=== PATIENT | male | born 1990 | race Caucasian/White ===

== ENCOUNTER 2016-10-11 20:13 | Emergency (ER) | payer OTHER ==
--- NOTE | 2016-10-11 21:33 | ED NURSING NOTES ---
Clinical Report - Nurses [facility] [address] [place] [address] 10/11/2016 20:14 Patient: ANDRIA JI TRIAGE Triage time 2019. Acuity: LEVEL 4. Chief Complaint: SORE THROAT. 20:20. --20:52 Shanita Burks R.N. 20:25 10/11/16. BP: 156/98. HR: 105. RR: 18. O2 saturation: 98%. Temp: 98.2 F. Pain level now: 11/23. --20:52 Shanita Burks R.N. Weight: 104.3 kg stated. Height/Length: 71 inches Per Patient. BMI: 32.1. --20:46 Shanita Burks R.N. Medications Amoxicillin Oral (Capsule 500 mg) 2 capsules, BID (taken 2 days). --20:48 Shanita Burks R.N. tylenol 650mg this am . --20:49 Shanita Burks R.N. Musonex 1 po OTC today. --20:49 Shanita Burks R.N. ZyrTEC Allergy Oral (Tablet 10 mg) 1 tablet, dalily. --20:50 Shanita Burks R.N. Allergies No Known Drug Allergy. --20:48 Shanita Burks R.N. History Arrived by private vehicle. Historian: patient. Accompanied by mother. No primary care physician. Onset. (6 days ago - was seen at clinic yesterday, started on antibiotics, not getting better- difficulty drinking fluids). He has had hoarseness. Reports enlarged lymph nodes. SOCIAL HX: Never smoker. Occasional alcohol use. --20:52 Shanita Burks R.N. PROBLEMS: Pharyngitis. Viral Disease. Radius Fracture. Asthma. --20:47 Shanita Burks R.N. ADDITIONAL SURGERIES: Laparoscopy. --20:47 Shanita Burks R.N. Interventions ID band on patient. To treatment room. --20:52 Shanita Burks R.N. PHYSICAL ASSESSMENT 20:20. Ambulatory to room. GENERAL / NEURO / PSYCH: Alert. Oriented X 4. Appears in pain. HEENT: Hoarse voice. Mouth within normal limits upon inspection. No dental injury noted. Mucous membranes are pink. RESPIRATORY: Respirations not labored. CVS: Capillary refill less than 2 seconds. SKIN: Skin is warm and dry. --20:53 Shanita Burks R.N. NURSING PROGRESS NOTES 20:20. Head of bed elevated. Patient identifiers checked. Call light placed in reach. Side rails up. Bed placed in lowest position. Patient ready for evaluation- chart flagged. --20:52 Shanita Burks R.N. 20:30. Patient ID band checked for patient name and birthdate: patient confirmed. Throat swab obtained for rapid strep; labeled in the presence of the patient and sent to lab (by NANDO). --20:53 Shanita Burks R.N. 20:40 10/11/2016 dexameethasone * PO 8mg --20:54 Shanita Burks R.N. 20:40 10/11/2016 TYLENOL W CODEINE (Acetaminophen-Codeine) PO Oral Suspension 10 mL given. Allergies verified and confirmed 5 rights. --20:55 Shanita Burks R.N. 20:55 10/11/16. Patient ID band checked for patient name and birthdate: patient confirmed. Blood samples drawn by lab per protocol ; labeled in presence of the patient and sent to lab: rainbow set. --20:55 Shanita Burks R.N. DISPOSITION / DISCHARGE 21:35. Condition at departure: unchanged and stable. No learning barriers present. Discharge instructions provided and reviewed with the patient and parent. Reviewed medication(s) (stop amoxicillin, may take codine, motrin and tylenol for pain). Patient and parent verbalized understanding. Written instructions provided in Bulgarian. The patient was discharged home and accompanied by parent. He left the Emergency Department ambulatory and via private vehicle. Parent driving. --21:45 Shanita Burks R.N. 21:35 10/11/16. BP: deferred. HR: deferred. RR: deferred. O2 saturation: deferred. Temp: deferred. --21:45 Shanita Burks R.N. Locked/Released at 10/11/2016 21:46 by Shanita Burks R.N.
--- NOTE | 2016-10-11 21:33 | ED ORDER SUMMARY ---
..... Patient: ANDRIA JI OrderSheet [facility] VisitID: [id number] [address] [place] [address] 26y, M Registration Date/Time: 10/11/2016 ORDER SHEET Weight: 104.3 kg (stated) Allergies: No Known Drug Allergy GENERAL ORDERS: Culture, Strep Screen Urgent (20:36 10/11/2016 EKoroleva P.A.-C) (Ack 20:53 CHagerty ER Restaurant General Manager) (20:54 DDean R.N.) Monoscreen Urgent (20:51 10/11/2016 EKoroleva P.A.-C) (Ack 20:53 CHagerty ER Restaurant General Manager) (20:55 DDean R.N.) MEDICATION ORDERS: Dexamethasone PO 8mg (NOW) (20:36 10/11/2016 EKoroleva P.A.-C) (Ack 20:38 DDean R.N.) (20:54 DDean R.N.) Tylenol w Codeine PO 10 mL (HIGH ALERT MEDICATION, NOW) (20:36 10/11/2016 EKoroleva P.A.-C) (Ack 20:39 DDean R.N.) (20:55 DDean R.N.) IV FLUIDS: ORDER SHEET NOTES: [Electronically signed by Shanita Burks R.N. (21:46 10/11/2016)] [Electronically signed by Miriam MoultonAFaith-Lilliana (22:11 10/11/2016)] [Electronically locked/signed by Shanita Burks R.N. (21:46 10/11/2016)]
--- NOTE | 2016-10-11 21:33 | ED ORDER SUMMARY ---
..... Patient: ANDRIA JI OrderSheet [facility] VisitID: [id number] [address] [place] [address] 26y, M Registration Date/Time: 10/11/2016 ORDER SHEET Weight: 104.3 kg (stated) Allergies: No Known Drug Allergy GENERAL ORDERS: Culture, Strep Screen Urgent (20:36 10/11/2016 EKoroleva P.A.-C) (Ack 20:53 CHagerty ER Motor Vehicles Supervisor) (20:54 DDean R.N.) Monoscreen Urgent (20:51 10/11/2016 EKoroleva P.A.-C) (Ack 20:53 CHagerty ER Motor Vehicles Supervisor) (20:55 DDean R.N.) MEDICATION ORDERS: Dexamethasone PO 8mg (NOW) (20:36 10/11/2016 EKoroleva P.A.-C) (Ack 20:38 DDean R.N.) (20:54 DDean R.N.) Tylenol w Codeine PO 10 mL (HIGH ALERT MEDICATION, NOW) (20:36 10/11/2016 EKoroleva P.A.-C) (Ack 20:39 DDean R.N.) (20:55 DDean R.N.) IV FLUIDS: ORDER SHEET NOTES: [Electronically signed by Shanita Burks R.N. (21:46 10/11/2016)] [Electronically signed by Miriam MoultonAFaith-Lilliana (22:11 10/11/2016)] [Electronically locked/signed by Shanita Burks R.N. (21:46 10/11/2016)]
--- NOTE | 2016-10-11 21:33 | ED CLINICAL REPORT ---
Clinical Report - Physicians/Mid Levels [facility] [address] [place] [address] 10/11/2016 20:14 Patient: ANDRIA JI Time Seen: 20:Oct 11 2016. Arrived- By private vehicle. Historian- patient. HISTORY OF PRESENT ILLNESS Chief Complaint: SORE THROAT. Is still present. Pain described as mild. The patient has had a sore throat. No toothache or swollen face. (Pt reports sore throat over last 3-4 days, some low grade fevers). Recent medical care: The patient was seen recently by a health care provider (clinic, started on amox ( neg strep)). REVIEW OF SYSTEMS The patient has had fever. No cough, difficulty breathing, diarrhea, abdominal pain or headache. No skin rash. All systems otherwise negative, except as recorded above. SOCIAL HISTORY Never smoker. No alcohol use or drug use. ADDITIONAL NOTES The nursing notes have been reviewed. PHYSICAL EXAM Vital Signs: 10/11/2016 20:25 BP: 156/98. HR: 105. RR: 18. O2 saturation: 98%. Temp: 98.2 F. Pain level now: 3/10. Appearance: Alert. Head: Normal external inspection. ENT: Nose normal. Left-sided tonsillar exudate and swelling. Membrane present suggesting mononucleosis. Pharynx normal. No trismus present. No dental tenderness, nasal discharge or purulent nasal discharge. Neck: Lymphadenopathy present. Trachea midline. CVS: Normal heart rate and rhythm. Heart sounds normal. Respiratory: No respiratory distress. Breath sounds normal. Abdomen: Soft. No abdominal tenderness or rebound tenderness. Skin: Normal skin color. LABS, X-RAYS, AND EKG Laboratory Tests: Monoscreen: (RASHEED: 10/11/2016 20:57) ( MsgRcvd 10/11/2016 21:17) Final results Test Result Flag Units (Reference) MONOSCREEN POSITIVE (NEGATIVE) Culture, Strep Screen: (RASHEED: 10/11/2016 20:30) ( MsgRcvd 10/11/2016 20:50) Final results Test Result Flag Units (Reference) RAPID STREP SCREEN - THROAT DATE: 10/11/16 NEGATIVE SCREEN: RAPID STREP SCREEN NEGATIVE; CONFIRMATION TO FOLLOW . PROGRESS AND PROCEDURES Course of Care: Pt here in er with no signs of uvula shift, pt stable. NO distress. No signs of cough, lungs clear. Pt with mono given steroid dexamethasone for sx, discussed course of care and treatment for patient. Neg rapid strep in er. 10/11/2016 20:25 BP: 156/98. HR: 105. RR: 18. O2 saturation: 98%. Temp: 98.2 F. Pain level now: 11/23. Patient is stable. Patient/family counseled. Disposition: Discharged. CLINICAL IMPRESSION Infectious mononucleosis (from Karan Ward virus) with pharyngitis. INSTRUCTIONS Drink plenty of fluids. Prescription Medications: Tylenol with Codeine Liquid, 12 mg / 120 mg / 5 mL: take 1-2 teaspoons every 6 hours as needed for pain. No refill. Substitution is permissible. (240mL) Motrin 800 mg tablets: take 1 tablet orally every 8 hours for 5 days, as needed for pain or fever. Dispense fifteen (15). No refill. Substitution is permissible. OTC Medications: Tylenol Children's Liquid, 160 mg/5 mL (available over the counter): take fifteen (15) mL orally every 6 hours as needed for pain or fever. Dispense one hundred twenty (120) mL. No refill. Substitution is permissible. Follow-up: Follow up with your doctor in three days. (Electronically signed by Miriam Moulton P.A.-C 10/11/2016 22:11)
--- NOTE | 2016-10-11 22:11 | ED MAR SUMMARY ---
..... Medication Administration Record [facility] [address] [place] [address] Patient: ANDRIA JI Visit ID: [id number] 26y, M Weight: 104.3 kg Height/Length: 71 in BMI: 32.1 ALLERGIES: No Known Drug Allergy Given 20:40 10/11/2016 Shanita Burks RKeshawn. Medication Administered: dexameethasone *, Dose: 8mg * PO. Medication Ordered: Dexamethasone PO 8mg (NOW). Given 20:40 10/11/2016 Shanita Burks, R.N. Medication Administered: TYLENOL W CODEINE [PO] (ACETAMINOPHEN-CODEINE), Dose: 10 mL Oral Suspension PO. Medication Ordered: Tylenol w Codeine PO 10 mL (HIGH ALERT MEDICATION, NOW).
--- NOTE | 2016-10-11 22:11 | ED MED RECONCILIATION SUMMARY ---
Patient: ANDRIA JI Medication Reconciliation Report [facility] VisitID: [id number] [address] [place] [address] 26y, M Registration Date/Time: 10/11/2016 Weight: 104.3 kg Height/Length: 71 in. BMI: 32.1 ALLERGIES: No Known Drug Allergy The patient's Home Medications are listed below: THE FOLLOWING MEDICATIONS NEED TO BE RECONCILED: Amoxicillin Oral (500 mg) 2 capsules, BID, taken 2 days Musonex 1 po OTC today tylenol 650mg this am ZyrTEC Allergy Oral (10 mg) 1 tablet, dalily The source(s) of the original Home Medication information: Not obtained. The following Medications were given to the patient in the Emergency Department: dexameethasone PO 8mg, administered: 10/11/2016 8:40:00 PM TYLENOL W CODEINE [PO] PO 10 mL, administered: 10/11/2016 8:40:00 PM The following Medications were prescribed to the patient: Tylenol with Codeine Liquid, 12 mg / 120 mg / 5 mL: take 1-2 teaspoons every 6 hours as needed for pain. No refill. Substitution is permissible.(240mL) -- Miriam Moulton PYang Tylenol Children's Liquid, 160 mg/5 mL (available over the counter): take fifteen (15) mL orally every 6 hours as needed for pain or fever. Dispense one hundred twenty (120) mL. No refill. Substitution is permissible. -- Miriam Moulton P.AMarco Motrin 800 mg tablets: take 1 tablet orally every 8 hours for 5 days, as needed for pain or fever. Dispense fifteen (15). No refill. Substitution is permissible. -- Miriam Moulton P.A.-C
--- NOTE | 2016-10-11 22:11 | ED DISCHARGE INSTRUCTIONS ---
Patient: ANDRIA JI General Instructions [facility] VisitID: [id number] [place] [address] 26y, M Registration Date/Time: 10/11/2016 Infectious mononucleosis (from Karan Ward virus) with pharyngitis. INSTRUCTIONS Drink plenty of fluids. Prescription Medications: Tylenol with Codeine Liquid, 12 mg / 120 mg / 5 mL: take 1-2 teaspoons every 6 hours as needed for pain. No refill. Substitution is permissible. (240mL) Motrin 800 mg tablets: take 1 tablet orally every 8 hours for 5 days, as needed for pain or fever. Dispense fifteen (15). No refill. Substitution is permissible. OTC Medications: Tylenol Children's Liquid, 160 mg/5 mL (available over the counter): take fifteen (15) mL orally every 6 hours as needed for pain or fever. Dispense one hundred twenty (120) mL. No refill. Substitution is permissible. Follow-up: Follow up with your doctor in three days. ADDITIONAL INFORMATION Mononucleosis Mononucleosis ("Tama") is a contagious viral infection. Most infants and children exposed to the virus get only mild flu-like symptoms or no symptoms at all. However, when infection occurs in teens and young adults, it causes Mononucleosis. Once infected, you are immune and cannot "catch" Tama again; however, the virus stays in your body and can become active again without causing symptoms. While the virus is active it can spread to others. The virus is spread by contact with saliva, most often by kissing someone who has the virus, even though they may not have symptoms. It takes about 4-6 weeks to develop symptoms after exposure. Early symptoms include headache, nausea, tiredness and general muscle aching. This is followed by sore throat, fever and swollen lymph glands in the neck and sometimes under the arms and in the groin. Symptoms usually go away in about 1-2 months, but can last up to four months. If your symptoms have been present less than one week or more than three weeks, the Tama-Spot test used to diagnose this disease may be negative even though you have the illness. IN this case, other tests may help the doctor make the diagnosis. If Ampicillin was previously prescribed for your sore throat, it may have caused a rash. This is not serious and will fade in about one week. This is not a true allergic reaction to Ampicillin, but a drug reaction with the virus. Tama can cause your spleen to swell. The spleen is a fist-sized organ in the upper left abdomen that stores red blood cells. Injury to a swollen spleen can cause the spleen to rupture. This can cause life-threatening internal bleeding. To avoid this, follow the advice below. Home Care: 1) Rest in bed until the fever and weakness have gone away. 2) Drink plenty of fluids, but avoid alcohol. Otherwise, you may eat a regular diet. 3) You may use acetaminophen (Tylenol) or ibuprofen (Motrin, Advil) to control fever and pain, unless another medicine was prescribed. [ NOTE : If you have chronic liver or kidney disease or ever had a stomach ulcer or GI bleeding, talk with your doctor before using these medicines.] (Aspirin should never be used in anyone under 18 years of age who is ill with a fever. It may cause severe liver damage.) 4) Pfgg-bdu-uypzfjk lozenges or spray may be used for sore throat. Gargling with warm salt water (1/2 teaspoon in 1 glass of warm water) is also soothing to the throat. 5) You may return to work or school after the fever goes away and you are feeling better. 6) Do not play contact sports or perform strenuous activity for eight weeks, or until cleared by your doctor. A sharp blow to your left side could rupture a swollen spleen. 7) If you have an itchy rash, you may take Benadryl (an priz-dai-tbuhtmt antihistamine). Use lower doses during the daytime and higher doses at bedtime since the drug may make you sleepy. [NOTE: Do not use Benadryl if you have glaucoma or if you are a man with trouble urinating due to an enlarged prostate.] Claritin (loratidine) is an antihistamine that causes less drowsiness and is a good alternative for daytime use. Preventing Spread Of The Virus: To limit the spread of the virus, avoid exposing others to your saliva for at least six months after your illness (no kissing, don't share utensils, glasses or toothbrushes). Follow Up with your doctor within one to two weeks or as advised by our staff to be sure that there are no complications. If symptoms of extreme fatigue and swollen glands last longer than 6 months, see your doctor for further testing. Get Prompt Medical Attention if any of the following occur: -- Difficulty breathing, excess coughing or chest pains -- Yellow skin or eyes -- Severe or worsening abdominal pain -- Fainting or dizziness -- Severe stiff neck, headache or facial weakness Acetaminophen Oral solution What is this medicine? ACETAMINOPHEN (a set a RACHANA belen fen) is a pain reliever. It is used to treat mild pain and fever. How should I use this medicine? Take this medicine by mouth. This medicine comes in more than one concentration. Check the concentration on the label before every dose to make sure you are giving the right dose. Follow the directions on the package or prescription label. Use a specially marked spoon or dropper to measure each dose. Ask your pharmacist if you do not have one. Household spoons are not accurate. Do not take your medicine more often than directed. Talk to your co founder and cto regarding the use of this medicine in children. While this drug may be prescribed for children as young as 2 years old for selected conditions, precautions do apply. What side effects may I notice from receiving this medicine? Side effects that you should report to your doctor or health child care education coordinator as soon as possible: allergic reactions like skin rash, itching or hives, swelling of the face, lips, or tongue breathing problems redness, blistering, peeling or loosening of the skin, including inside the mouth sore throat with fever, headache, rash, nausea, or vomiting trouble passing urine or change in the amount of urine unusual bleeding or bruising unusually weak or tired yellowing of the eyes, skin Side effects that usually do not require medical attention (report to your doctor or health child care education coordinator if they continue or are bothersome): headache nausea, stomach upset What may interact with this medicine? alcohol imatinib isoniazid other medicines that contain acetaminophen What if I miss a dose? If you miss a dose, take it as soon as you can. If it is almost time for your next dose, take only that dose. Do not take double or extra doses. Where should I keep my medicine? Keep out of reach of children. Store at room temperature between 20 and 25 degrees C (68 and 77 degrees F). Protect from moisture and heat. Throw away any unused medicine after the expiration date. What should I tell my health care provider before I take this medicine? They need to know if you have any of these conditions: if you frequently drink alcohol containing drinks liver disease phenylketonuria an unusual or allergic reaction to acetaminophen, other medicines, foods, dyes or preservatives or trying to get breast-feeding What should I watch for while using this medicine? Tell your doctor or health child care education coordinator if the pain lasts more than 10 days (5 days for children), if it gets worse, or if there is a new or different kind of pain. Also, check with your doctor if a fever lasts for more than 3 days. Do not take acetaminophen (Tylenol) or other medicines that contain acetaminophen with this medicine. Too much acetaminophen can be very dangerous and cause an overdose. Always read labels carefully. Report any possible overdose to your doctor right away, even if there are no symptoms. The effects of extra doses may not be seen for many days. You have been given the following additional information: Mononucleosis Acetaminophen Oral solution (Electronically signed by Miriam Moulton P.A.-C 10/11/2016 22:11)
--- NOTE | 2016-10-11 22:11 | ED MAR SUMMARY ---
..... Medication Administration Record [facility] [address] [place] [address] Patient: ANDRIA JI Visit ID: [id number] 26y, M Weight: 104.3 kg Height/Length: 71 in BMI: 32.1 ALLERGIES: No Known Drug Allergy Given 20:40 10/11/2016 Shanita Burks RKeshawn. Medication Administered: dexameethasone *, Dose: 8mg * PO. Medication Ordered: Dexamethasone PO 8mg (NOW). Given 20:40 10/11/2016 Shanita Burks, R.N. Medication Administered: TYLENOL W CODEINE [PO] (ACETAMINOPHEN-CODEINE), Dose: 10 mL Oral Suspension PO. Medication Ordered: Tylenol w Codeine PO 10 mL (HIGH ALERT MEDICATION, NOW).
--- NOTE | 2016-10-11 22:11 | ED DISCHARGE INSTRUCTIONS ---
Patient: ANDRIA JI General Instructions [facility] VisitID: [id number] [place] [address] 26y, M Registration Date/Time: 10/11/2016 Infectious mononucleosis (from Karan Ward virus) with pharyngitis. INSTRUCTIONS Drink plenty of fluids. Prescription Medications: Tylenol with Codeine Liquid, 12 mg / 120 mg / 5 mL: take 1-2 teaspoons every 6 hours as needed for pain. No refill. Substitution is permissible. (240mL) Motrin 800 mg tablets: take 1 tablet orally every 8 hours for 5 days, as needed for pain or fever. Dispense fifteen (15). No refill. Substitution is permissible. OTC Medications: Tylenol Children's Liquid, 160 mg/5 mL (available over the counter): take fifteen (15) mL orally every 6 hours as needed for pain or fever. Dispense one hundred twenty (120) mL. No refill. Substitution is permissible. Follow-up: Follow up with your doctor in three days. ADDITIONAL INFORMATION Mononucleosis Mononucleosis ("Dearborn") is a contagious viral infection. Most infants and children exposed to the virus get only mild flu-like symptoms or no symptoms at all. However, when infection occurs in teens and young adults, it causes Mononucleosis. Once infected, you are immune and cannot "catch" Dearborn again; however, the virus stays in your body and can become active again without causing symptoms. While the virus is active it can spread to others. The virus is spread by contact with saliva, most often by kissing someone who has the virus, even though they may not have symptoms. It takes about 4-6 weeks to develop symptoms after exposure. Early symptoms include headache, nausea, tiredness and general muscle aching. This is followed by sore throat, fever and swollen lymph glands in the neck and sometimes under the arms and in the groin. Symptoms usually go away in about 1-2 months, but can last up to four months. If your symptoms have been present less than one week or more than three weeks, the Dearborn-Spot test used to diagnose this disease may be negative even though you have the illness. IN this case, other tests may help the doctor make the diagnosis. If Ampicillin was previously prescribed for your sore throat, it may have caused a rash. This is not serious and will fade in about one week. This is not a true allergic reaction to Ampicillin, but a drug reaction with the virus. Dearborn can cause your spleen to swell. The spleen is a fist-sized organ in the upper left abdomen that stores red blood cells. Injury to a swollen spleen can cause the spleen to rupture. This can cause life-threatening internal bleeding. To avoid this, follow the advice below. Home Care: 1) Rest in bed until the fever and weakness have gone away. 2) Drink plenty of fluids, but avoid alcohol. Otherwise, you may eat a regular diet. 3) You may use acetaminophen (Tylenol) or ibuprofen (Motrin, Advil) to control fever and pain, unless another medicine was prescribed. [ NOTE : If you have chronic liver or kidney disease or ever had a stomach ulcer or GI bleeding, talk with your doctor before using these medicines.] (Aspirin should never be used in anyone under 18 years of age who is ill with a fever. It may cause severe liver damage.) 4) Lexp-cqt-qcojevn lozenges or spray may be used for sore throat. Gargling with warm salt water (1/2 teaspoon in 1 glass of warm water) is also soothing to the throat. 5) You may return to work or school after the fever goes away and you are feeling better. 6) Do not play contact sports or perform strenuous activity for eight weeks, or until cleared by your doctor. A sharp blow to your left side could rupture a swollen spleen. 7) If you have an itchy rash, you may take Benadryl (an kyld-aug-alezdqf antihistamine). Use lower doses during the daytime and higher doses at bedtime since the drug may make you sleepy. [NOTE: Do not use Benadryl if you have glaucoma or if you are a man with trouble urinating due to an enlarged prostate.] Claritin (loratidine) is an antihistamine that causes less drowsiness and is a good alternative for daytime use. Preventing Spread Of The Virus: To limit the spread of the virus, avoid exposing others to your saliva for at least six months after your illness (no kissing, don't share utensils, glasses or toothbrushes). Follow Up with your doctor within one to two weeks or as advised by our staff to be sure that there are no complications. If symptoms of extreme fatigue and swollen glands last longer than 6 months, see your doctor for further testing. Get Prompt Medical Attention if any of the following occur: -- Difficulty breathing, excess coughing or chest pains -- Yellow skin or eyes -- Severe or worsening abdominal pain -- Fainting or dizziness -- Severe stiff neck, headache or facial weakness Acetaminophen Oral solution What is this medicine? ACETAMINOPHEN (a set a RACHANA belen fen) is a pain reliever. It is used to treat mild pain and fever. How should I use this medicine? Take this medicine by mouth. This medicine comes in more than one concentration. Check the concentration on the label before every dose to make sure you are giving the right dose. Follow the directions on the package or prescription label. Use a specially marked spoon or dropper to measure each dose. Ask your pharmacist if you do not have one. Household spoons are not accurate. Do not take your medicine more often than directed. Talk to your consular officer regarding the use of this medicine in children. While this drug may be prescribed for children as young as 2 years old for selected conditions, precautions do apply. What side effects may I notice from receiving this medicine? Side effects that you should report to your doctor or health dog daycare provider as soon as possible: allergic reactions like skin rash, itching or hives, swelling of the face, lips, or tongue breathing problems redness, blistering, peeling or loosening of the skin, including inside the mouth sore throat with fever, headache, rash, nausea, or vomiting trouble passing urine or change in the amount of urine unusual bleeding or bruising unusually weak or tired yellowing of the eyes, skin Side effects that usually do not require medical attention (report to your doctor or health dog daycare provider if they continue or are bothersome): headache nausea, stomach upset What may interact with this medicine? alcohol imatinib isoniazid other medicines that contain acetaminophen What if I miss a dose? If you miss a dose, take it as soon as you can. If it is almost time for your next dose, take only that dose. Do not take double or extra doses. Where should I keep my medicine? Keep out of reach of children. Store at room temperature between 20 and 25 degrees C (68 and 77 degrees F). Protect from moisture and heat. Throw away any unused medicine after the expiration date. What should I tell my health care provider before I take this medicine? They need to know if you have any of these conditions: if you frequently drink alcohol containing drinks liver disease phenylketonuria an unusual or allergic reaction to acetaminophen, other medicines, foods, dyes or preservatives or trying to get breast-feeding What should I watch for while using this medicine? Tell your doctor or health dog daycare provider if the pain lasts more than 10 days (5 days for children), if it gets worse, or if there is a new or different kind of pain. Also, check with your doctor if a fever lasts for more than 3 days. Do not take acetaminophen (Tylenol) or other medicines that contain acetaminophen with this medicine. Too much acetaminophen can be very dangerous and cause an overdose. Always read labels carefully. Report any possible overdose to your doctor right away, even if there are no symptoms. The effects of extra doses may not be seen for many days. You have been given the following additional information: Mononucleosis Acetaminophen Oral solution (Electronically signed by Miriam Moulton P.A.-C 10/11/2016 22:11)
--- NOTE | 2016-10-11 22:11 | ED MED RECONCILIATION SUMMARY ---
Patient: ANDRIA JI Medication Reconciliation Report [facility] VisitID: [id number] [address] [place] [address] 26y, M Registration Date/Time: 10/11/2016 Weight: 104.3 kg Height/Length: 71 in. BMI: 32.1 ALLERGIES: No Known Drug Allergy The patient's Home Medications are listed below: THE FOLLOWING MEDICATIONS NEED TO BE RECONCILED: Amoxicillin Oral (500 mg) 2 capsules, BID, taken 2 days Musonex 1 po OTC today tylenol 650mg this am ZyrTEC Allergy Oral (10 mg) 1 tablet, dalily The source(s) of the original Home Medication information: Not obtained. The following Medications were given to the patient in the Emergency Department: dexameethasone PO 8mg, administered: 10/11/2016 8:40:00 PM TYLENOL W CODEINE [PO] PO 10 mL, administered: 10/11/2016 8:40:00 PM The following Medications were prescribed to the patient: Tylenol with Codeine Liquid, 12 mg / 120 mg / 5 mL: take 1-2 teaspoons every 6 hours as needed for pain. No refill. Substitution is permissible.(240mL) -- Miriam Moulton PYang Tylenol Children's Liquid, 160 mg/5 mL (available over the counter): take fifteen (15) mL orally every 6 hours as needed for pain or fever. Dispense one hundred twenty (120) mL. No refill. Substitution is permissible. -- Miriam Moulton P.AMarco Motrin 800 mg tablets: take 1 tablet orally every 8 hours for 5 days, as needed for pain or fever. Dispense fifteen (15). No refill. Substitution is permissible. -- Miriam Moulton P.A.-C
== END 2016-10-11 21:38 | disposition home or self-care (01) ==
LOC: ED SRH 20:13
DX: B27.00 Gammaherpesviral mononucleosis without complication (principal)
CPT/HCPCS: 90074; 90154; 90159; 90627; 98370